=== PATIENT | female | born 1980 | race Caucasian/White ===

== ENCOUNTER 2017-02-16 18:06 | Emergency (ER) | payer OTHER ==
[2017-02-16 18:22] VITALS: BP 160/95; PULSE 108; RESP 20; TEMP 98.8; O2SAT 98
--- NOTE | 2017-02-16 19:33 | UCPHY ---
H & P Time Seen by Provider: 02/16/17 19:09 Patient Type: Established HPI/ROS: This patient has 3 week history of URI symptoms that are worsening. She explains that she had nasal congestion for the 1st week or so over the past 2 weeks has had increasing sinus pain to the maxillary sinus the left more than other areas that worsens when she bends forward. She also describes a cough with mild wheeze that started over the past 10 days. ROS: No high fevers or chills. No other constitutional symptoms HEENT: No significant sore throat. She reports intermittent epistaxis that is usually brief with her sinus symptoms. She has no other HEENT complaints this time. Pulmonary: No pleuritic pain or shortness of breath. GI: No vomiting neuro: No confusion. 7 point ROS is otherwise negative. Past Medical/Surgical History: Otherwise healthy Smoking Status: Former smoker Physical Exam: Physical Exam Vital signs are normal. General: No acute distress HEENT: Nose: Swollen nasal turbinates and mucosa on the left side with purulent appearing discharge in sinus tenderness to percussion left maxillary sinus. Oropharynx is clear Ears: External canals and tympanic membranes are clear with no erythema or abnormal findings bilaterally. Oropharynx: No erythema or exudates. No dysphonia. No drooling or stridor. Neck: Supple Eyes: Pupils equal and react to light. Extraocular motions are intact. Lungs: Faint expiratory wheeze only with cough. No rales or rhonchi. Cardiac: Regular rate and rhythm with no murmur gallop or rub Skin: No rash or pallor. Neuro: Alert with no focal deficits noted. Sinusitis with cough. Bronchitis. Doubt pneumonia. Constitutional: Initial Vital Signs Temperature (C) 37.1 C 02/16/17 18:18 Heart Rate 108 H 02/16/17 18:18 Respiratory Rate 20 02/16/17 18:18 Blood Pressure 160/95 H 02/16/17 18:18 O2 Sat (%) 98 02/16/17 18:18 O2 Delivery Mode Room Air Allergies/Adverse Reactions: cephalexin monohydrate [From Keflex] Allergy (Verified 11/20/16 17:21) Home Medications: Medication Instructions Recorded Albuterol Hfa Anes Only [Proair 2 puffs IH Q4 PRN #1 mdi 02/16/17 Hfa Icu (*)] Azithromycin [Zithromax] 250 mg PO DAILY #6 tab 02/16/17 Fluticasone Nasal [Flonase Nasal 2 sprays NASAL DAILY #1 mdi 02/16/17 Miller (RX)] Fluticasone Nasal [Flonase Nasal 2 sprays NASAL DAILY #1 mdi 02/16/17 Miller (RX)] MDM/Departure - [facility] ED Course/Re-evaluation: I counseled the patient regarding sinusitis. No clinical evidence to suggest STEERER infection or other complicating factors. - Depart Disposition: Home, Routine, Self-Care Clinical Impression: Cough Maxillary sinusitis, acute Qualifiers: Recurrence: not specified as recurrent Qualified Code(s): J01.00 - Acute maxillary sinusitis, unspecified Condition: Good Instructions: Sinusitis (ED) Additional Instructions: Diagnosis: Maxillary sinusitis 2. Cough Plan: Humidifier Guaifenesin Flonase steroid nasal spray Zithromax antibiotic Albuterol if needed for cough, wheeze or shortness of breath. Ibuprofen for swelling and pain as needed Return for any significant worsening despite the treatment plan. Prescriptions: Albuterol Hfa Anes Only [Proair Hfa Icu (*)] 2 puffs IH Q4 PRN #1 mdi PRN Reason: Wheezing Azithromycin [Zithromax] 250 mg PO DAILY #6 tab Fluticasone Nasal [Flonase Nasal Miller (RX)] 2 sprays NASAL DAILY #1 mdi Fluticasone Nasal [Flonase Nasal Miller (RX)] 2 sprays NASAL DAILY #1 mdi Referrals: NONE *PRIMARY CARE P,. [Primary Care Provider] - As per Instructions - PQRS PQRS Measurement: NA
== END 2017-02-16 19:45 | disposition home or self-care (01) ==
LOC: CED 18:06
DX: J01.00 Acute maxillary sinusitis, unspecified (principal)
CPT/HCPCS: G0463-PO

== ENCOUNTER 2017-03-23 16:08 | Emergency (ER) | payer OTHER ==
--- NOTE | 2017-03-23 17:42 | EDPHY ---
H & P Stated Complaint: h/a since 03/22-concerned for spinal h/a--had spinal anesthesia 03/21 Time Seen by Provider: 03/23/17 16:26 HPI/ROS: CHIEF COMPLAINT: Positional headache HISTORY OF PRESENT ILLNESS: The patient presents to the ED with a 3 day history of a severe positional headache. The patient is status post right knee arthroplasty,/labral reconstruction earlier this week. The patient did have a spinal epidural anesthesia in addition to general anesthesia. The patient reports a headache which is 9/10 when upright and 3/10 when recumbent. The patient does have a history of chronic migraines. She reports she has difficult to control migraines at baseline. The patient states this is not typical of her migraine headaches. The patient denies fever, she denies focal numbness, weakness or additional complaints. REVIEW OF SYSTEMS: A comprehensive 10 point review of systems is otherwise negative aside from elements mentioned in the history of present illness. Source: Patient Exam Limitations: No limitations - Personal History LMP (Females 10-55): 15-21 Days Ago Current Tetanus/Diphtheria Vaccine: Unsure Current Tetanus Diphtheria and Acellular Pertussis (TDAP): Unsure Tetanus Vaccine Date: 11/2014 - Medical/Surgical History Hx Asthma: No Hx Chronic Respiratory Disease: No Hx Diabetes: No Hx Cardiac Disease: No Hx Renal Disease: No Hx Cirrhosis: No Hx Alcoholism: No Hx HIV/AIDS: No Hx Splenectomy or Spleen Trauma: No Other PMH: denies - Social History Smoking Status: Former smoker - Physical Exam Exam: General Appearance: Alert, no distress Eyes: Pupils equal and round no pallor or injection ENT, Mouth: Mucous membranes moist Respiratory: There are no retractions, lungs are clear to auscultation Cardiovascular: Regular rate and rhythm Gastrointestinal: Abdomen is soft and nontender, no masses, bowel sounds normal Neurological: A&O, normal motor function, normal sensory exam, normal cranial nerves Skin: Warm and dry, no rashes Musculoskeletal: Neck is supple nontender Extremities: symmetrical, full range of motion Constitutional: Initial Vital Signs Temperature (C) 36.8 C 03/23/17 16:19 Heart Rate 99 03/23/17 16:19 Respiratory Rate 16 03/23/17 16:19 Blood Pressure 124/100 H 03/23/17 16:19 O2 Sat (%) 95 03/23/17 16:19 O2 Delivery Mode Nasal Cannula O2 (L/minute) 2 Allergies/Adverse Reactions: cephalexin monohydrate [From Keflex] Allergy (Verified 11/20/16 17:21) Home Medications: Medication Instructions Recorded Dilaudid 03/23/17 Valium 03/23/17 Medical Decision Making - Diagnostics Imaging Results: Imaging Impressions Lumbar Puncture 03/23/17 16:47 Impression: Blood patch performed at L1-L2. ED Course/Re-evaluation: The patient presents to the emergency department with a positional headache following an epidural anesthesia. I did consult with Dr. Rica Skelton who is on-call for Interventional Radiology who will perform a blood patch on the patient. Patient returns from her blood patch with marked improvement of her symptoms. The patient was kept supine for 1 hour. She will be discharged home with her . Differential Diagnosis: Differential diagnosis considered includes post lumbar puncture headache, meningitis, migraine headache Departure - Departure Disposition: Home, Routine, Self-Care Clinical Impression: Spinal puncture headache Condition: Good Instructions: Lumbar Puncture (ED) Additional Instructions: 1. Please return to the ED for markedly worsening symptoms, fever, vomiting or other concerns.
[2017-03-23] MEDS ORDERED: IOPAMIDOL (ISOVUE-M 300) 15 ML VIAL IV ONE (17:54)
[2017-03-23 18:08] VITALS: RESP 20
[2017-03-23 18:58] VITALS: BP 126/91; PULSE 91; TEMP 98.4; O2SAT 95
== END 2017-03-23 19:09 | disposition home or self-care (01) ==
DX: G97.1 Other reaction to spinal and lumbar puncture (principal); Z87.891 Personal history of nicotine dependence
CPT/HCPCS: Q9967

== ENCOUNTER 2017-03-29 15:55 | Emergency (ER) | payer OTHER ==
[2017-03-29 16:05] VITALS: TEMP 98.4
--- NOTE | 2017-03-29 16:13 | EDPHY ---
H & P Stated Complaint: Still has swelling R foot since hip surg ;sent for eval Time Seen by Provider: 03/29/17 16:13 - Personal History LMP (Females 10-55): 1-7 Days Ago Current Tetanus Diphtheria and Acellular Pertussis (TDAP): Yes Tetanus Vaccine Date: 11/2014 - Medical/Surgical History Hx Asthma: No Hx Chronic Respiratory Disease: No Hx Diabetes: No Hx Cardiac Disease: No Hx Renal Disease: No Hx Cirrhosis: No Hx Alcoholism: No Hx HIV/AIDS: No Hx Splenectomy or Spleen Trauma: No Other PMH: tachycardia - Social History Smoking Status: Former smoker Constitutional: Initial Vital Signs Temperature (C) 36.9 C 03/29/17 16:00 Heart Rate 118 H 03/29/17 16:00 Respiratory Rate 18 03/29/17 16:00 Blood Pressure 134/97 H 03/29/17 16:00 O2 Sat (%) 100 03/29/17 16:00 O2 Delivery Mode Room Air Allergies/Adverse Reactions: cephalexin monohydrate [From Keflex] Allergy (Intermediate, Verified 03/29/17 16 :05) "gives me colitis" Home Medications: Medication Instructions Recorded Sulfamethox/Tmp 800/160 mg 1 tab PO 03/29/17 [Bactrim Ds] Medical Decision Making - Diagnostics Imaging Results: Imaging Impressions Extremity Venous Study 03/29/17 16:13 Impression: No deep venous thrombosis right leg. Findings and recommendations discussed with Emergency Department physician, Han Rose MD at 16:52 hour, 03/29/2017. Final report concurs with initial preliminary interpretation. ED Course/Re-evaluation: CHIEF COMPLAINT: Right foot and calf swelling. HISTORY OF PRESENT ILLNESS: The patient is a 36-year-old female status post right hip labrum tear who presents with right foot and calf swelling that began this morning. She has been using her compression sock. She denies shortness of breath, chest pain, weakness, numbness, paresthesias, or other complaints. REVIEW OF SYSTEMS: A 10 point review of systems was performed and is negative with the exception of the elements mentioned in the history of present illness. PHYSICAL EXAM: HR, BP, O2 Sat, RR. Temp noted General Appearance: Alert, well hydrated, appropriate, and non-toxic appearing. Head: Atraumatic without scalp tenderness or obvious injury Eyes: Pupils equal, round, reactive to light and accommodation, EOMI, no trauma , no injection. Ears: Clear bilaterally, no perforation, normal landmarks Nose: Atraumatic, no rhinorrhea, clear. Throat: There is no erythema or exudates, no lesions, normal tonsils, mucus membranes moist. Neck: Supple, 2+ carotid upstroke, nontender, no lymphadenopathy. Respiratory: No retractions, no distress, no wheezes, and no accessory muscle use. Lungs are clear to auscultation bilaterally. Cardiovascular: Regular rate and rhythm, no murmurs, rubs, or gallops. Bilateral carotid, radial, dorsalis pedis, and posterior tibial pulses intact. Good capillary refill all extremities. Gastrointestinal: Abdomen is soft, nontender, non-distended, no masses, no rebound, no guarding, no peritoneal signs. Musculoskeletal: Normal active ROM of all extremities, atraumatic. Neurological: Alert, appropriate, and interactive. The patient has normal DTRs and non-focal cranial nerves, motor, sensory, and cerebellar exam. Skin: No rashes, good turgor, no nodules on palpation. Past medical history: Denies. Past surgical history: Hip surgery. Family history: N/A. Social history: Here alone. DIAGNOSTICS/PROCEDURES/CRITICAL CARE TIME: Study: Ultrasound of the: Right leg. Indication: Swelling. Results: See Image Results section for official report. The study was read by the radiologist, Dr. Molina. I viewed the images myself on the PACS system. DIFFERENTIAL DIAGNOSIS: The differential diagnosis for the patient's leg swelling included but was not limited to hypoalbuminemia, congestive heart failure, cor pulmonale, venous stasis, trauma, and DVT. MEDICAL DECISION MAKIN-year-old female status post right hip surgery presents with right calf and foot swelling. She also has mild tenderness over the dorsum of her foot. I am suspicious for blood clot. Right leg ultrasound ordered. Ultrasound results conveyed to me negative by Dr. Molina, radiology. I discussed these results with her. She understands to follow up with her PCP for reevaluation. She is comfortable with this plan. Departure - Departure Disposition: Home, Routine, Self-Care Clinical Impression: Foot swelling Condition: Good Instructions: Leg Edema (ED) Additional Instructions: Follow up with your primary care provider for reevaluation. Return for any serious worsening of condition. Referrals: BELKYS LEE [Other] - As per Instructions Report Scribed for: Han Rose Report Scribed by: David Schultz Date of Report: 03/29/17 Time of Report: 16:18
[2017-03-29 17:09] VITALS: BP 118/76; PULSE 80; RESP 14; O2SAT 94
== END 2017-03-29 17:08 | disposition home or self-care (01) ==
DX: M79.89 Other specified soft tissue disorders (principal); Z87.891 Personal history of nicotine dependence

== ENCOUNTER 2017-06-01 18:31 | Emergency (ER) | payer OTHER ==
[2017-06-01 18:43] VITALS: BP 133/89; PULSE 94; RESP 16; TEMP 98.2; O2SAT 98
--- NOTE | 2017-06-01 18:44 | EDPHY ---
H & P Time Seen by Provider: 06/01/17 18:37 HPI/ROS: CHIEF COMPLAINT: Dysuria HISTORY OF PRESENT ILLNESS: Patient is a 37-year-old female with a history of frequent urinary tract infections comes to the emergency department complaining of dysuria, frequency and mild flank pain. The pain is bilateral. No hesitancy. No bleeding. No vaginal symptoms. She has not been sexually active in 8 months. No nausea vomiting or diarrhea. No fever. She states that this feels similar to previous urinary tract infections. REVIEW OF SYSTEMS: Constitutional: denies: chills, fever, recent illness, recent injury EENTM: denies: blurred vision, double vision, nose congestion Respiratory: denies: cough, shortness of breath Cardiac: denies: chest pain, irregular heart rate, lightheadedness, palpitations Gastrointestinal/Abdominal: denies: abdominal pain, diarrhea, nausea, vomiting, blood streaked stools Genitourinary: See HPI Musculoskeletal: denies: joint pain, muscle pain Skin: denies: lesions, rash, jaundice, bruising Neurological: denies: headache, numbness, paresthesia, tingling, dizziness, weakness Hematologic/Lymphatic: denies: blood clots, easy bleeding, easy bruising Immunologic/allergic: denies: HIV/AIDS, transplant EXAM: GENERAL: Well-appearing, well-nourished and in no acute distress. HEAD: Atraumatic, normocephalic. EYES: Pupils equal round and reactive to light, extraocular movements intact, sclera anicteric, conjunctiva are normal. ENT: TMs normal, nares patent, oropharynx clear without exudates. Moist mucous membranes. NECK: Normal range of motion, supple without lymphadenopathy or JVD. LUNGS: Breath sounds clear to auscultation bilaterally and equal. No wheezes rales or rhonchi. HEART: Regular rate and rhythm without murmurs, rubs or gallops. ABDOMEN: Slight suprapubic tenderness, Soft, normoactive bowel sounds. No guarding, no rebound. No masses appreciated. BACK: Mild CVA tenderness, no spinal tenderness, step-offs or deformities EXTREMITIES: Normal range of motion, no pitting or edema. No clubbing or cyanosis. NEUROLOGICAL: Cranial nerves II through XII grossly intact. Normal speech, normal gait. 5/5 strength, normal movement in all extremities, normal sensation PSYCH: Normal mood, normal affect. SKIN: Warm, dry, normal turgor, no visible rashes or lesions. Source: Patient Exam Limitations: No limitations - Personal History Tetanus Vaccine Date: 11/2014 - Medical/Surgical History Hx Asthma: No Hx Chronic Respiratory Disease: No Hx Diabetes: No Hx Cardiac Disease: No Hx Renal Disease: No Hx Cirrhosis: No Hx Alcoholism: No Hx HIV/AIDS: No Hx Splenectomy or Spleen Trauma: No Other PMH: tachycardia - Family History Significant Family History: No pertinent family hx - Social History Smoking Status: Former smoker Alcohol Use: Sober Drug Use: None Constitutional: Initial Vital Signs Temperature (C) 36.8 C 06/01/17 18:33 Heart Rate 94 06/01/17 18:33 Respiratory Rate 16 06/01/17 18:33 Blood Pressure 133/89 H 06/01/17 18:33 O2 Sat (%) 98 06/01/17 18:33 O2 Delivery Mode Room Air Allergies/Adverse Reactions: cephalexin monohydrate [From Keflex] Allergy (Intermediate, Verified 06/01/17 18 :43) "gives me colitis" Home Medications: Medication Instructions Recorded Effexor 06/01/17 GABAPENTIN 06/01/17 Nitrofurantoin Monohyd/M-Cryst 100 mg PO BID #20 cap 06/01/17 [Nitrofurantoin Harris-Macrocrystal] Medical Decision Making ED Course/Re-evaluation: Patient's urinalysis is unremarkable however her symptoms are characteristic To urinary tract infections and to her very similar to previous infections. She is requesting antibiotics. She is allergic to Keflex. I will start her on Macrobid. We will send her urine for cultures. She is happy with this plan and declines any further workup or testing. Differential Diagnosis: Partial list of the Differential diagnosis considered include but were not limited to; urinary tract infection, kidney stone, yeast infection and although unlikely based on the history and physical exam, I also considered , aneurysm, diverticulitis, appendicitis. I discussed these differential diagnoses and the plan with the patient as well as the usual and expected course. The patient understands that the diagnosis is provisional and that in medicine we are not always correct and that further workup is often warranted. Usual and customary warnings were given. All of the patient's questions were answered. The patient was instructed to return to the emergency department should the symptoms at all worsen or return, otherwise to followup with the physician as we discussed. - Data Points Laboratory Results: 06/01/17 18:40 Urine Color YELLOW Urine Appearance CLEAR Urine pH 5.5 (5.0-7.5) Ur Specific [place] >= 1.030 (1.002-1.030) Urine Protein NEGATIVE (NEGATIVE) Urine Ketones TRACE H (NEGATIVE) Urine Blood NEGATIVE (NEGATIVE) Urine Nitrate NEGATIVE (NEGATIVE) Urine Bilirubin NEGATIVE (NEGATIVE) Urine Urobilinogen 0.2 EU EU (0.2-1.0) Ur Leukocyte Esterase NEGATIVE (NEGATIVE) Urine RBC 0-1 /hpf /hpf (0-3) Urine WBC 1-3 /hpf /hpf (0-3) Ur Epithelial Cells 2+ /lpf H /lpf (NONE-1+) Urine Bacteria 1+ /hpf H /hpf (NONE SEEN) Hyaline Casts 0-1 /lpf /lpf (0-1) Urine Mucus 2+ /lpf H /lpf (NONE-1+) Urine Glucose NEGATIVE (NEGATIVE) Departure - Departure Disposition: Home, Routine, Self-Care Clinical Impression: Urinary tract infection Qualifiers: Urinary tract infection type: acute cystitis Hematuria presence: without hematuria Qualified Code(s): N30.00 - Acute cystitis without hematuria Condition: Fair Instructions: Urinary Tract Infection in Women (ED) Referrals: NONE *PRIMARY CARE P,. [Primary Care Provider] - As per Instructions Shavon Rodriguez MD [Medical Doctor] - As per Instructions Prescriptions: Nitrofurantoin Monohyd/M-Cryst [Nitrofurantoin Harris-Macrocrystal] 100 mg PO BID #20 cap
[2017-06-01 18:55] LABS: COLOR YELLOW; LEUKOCYTE ESTERASE,URINE NEGATIVE (NEGATIVE); NITRITE,URINE NEGATIVE (NEGATIVE); PH,URINE 5.5 (5.0-7.5)
[2017-06-01 19:07] LABS: BACTERIA 1+ /hpf (NONE SEEN); HYALINE CASTS 0-1 /lpf (0-1); MUCUS 2+ /lpf (NONE-1+); RBC,URINE 0-1 /hpf (0-3)
== END 2017-06-01 19:26 | disposition home or self-care (01) ==
LOC: CED 18:31
DX: N30.00 Acute cystitis without hematuria (principal); B96.89 Other specified bacterial agents as the cause of diseases classified elsewhere; Z87.891 Personal history of nicotine dependence
CPT/HCPCS: 81003-PO; 81015-PO

== ENCOUNTER 2017-06-12 14:16 | Emergency (ER) | payer OTHER ==
[2017-06-12 14:21] VITALS: BP 124/94; PULSE 108; RESP 16; TEMP 97.7; O2SAT 96
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
[2017-06-12] MEDS ORDERED: OXYCODONE/APAP 5/325 TAB PO ONE (14:33)
== END 2017-06-12 16:14 | disposition home or self-care (01) ==
DX: S80.01XA Contusion of right knee, initial encounter (principal); Z87.891 Personal history of nicotine dependence; W01.0XXA Fall on same level from slipping, tripping and stumbling without subsequent striking against object, initial encounter

== ENCOUNTER 2017-07-19 17:33 | Emergency (ER) | payer OTHER ==
[2017-07-19 17:45] VITALS: O2SAT 97
[2017-07-19] MEDS ORDERED: PROMETHAZINE 25 MG PREPACK #4 BTL TAKEHOME ONE (18:35)
--- NOTE | 2017-07-19 18:39 | EDPHY ---
H & P Stated Complaint: HIT HEAD LAST NIGHT, ONGOING NAUSEAS AND EVANS Time Seen by Provider: 07/19/17 18:29 HPI/ROS: CHIEF COMPLAINT: Concussion HISTORY OF PRESENT ILLNESS: The patient is a 37-year-old female who comes to the emergency department concerned that she had a concussion. She states that yesterday she was sitting on the couch and bent over and hit her head on the counter. She did not lose consciousness. She has had a headache ever since then. She did vomit last night. She has not vomited today. She has mild photophobia. No neck or back pain. No weakness or numbness. She states that her kept her awake all night last night checking on her. REVIEW OF SYSTEMS: Constitutional: denies: chills, fever, recent illness, recent injury EENTM: denies: blurred vision, double vision, nose congestion Respiratory: denies: cough, shortness of breath Cardiac: denies: chest pain, irregular heart rate, lightheadedness, palpitations Gastrointestinal/Abdominal: denies: abdominal pain, diarrhea, nausea, vomiting, blood streaked stools Genitourinary: denies: dysuria, frequency, hematuria, pain Musculoskeletal: denies: joint pain, muscle pain Skin: denies: lesions, rash, jaundice, bruising Neurological: See HPI Hematologic/Lymphatic: denies: blood clots, easy bleeding, easy bruising Immunologic/allergic: denies: HIV/AIDS, transplant EXAM: GENERAL: Well-appearing, well-nourished and in no acute distress. HEAD: Atraumatic, normocephalic. EYES: No nystagmus, Pupils equal round and reactive to light, extraocular movements intact, sclera anicteric, conjunctiva are normal. ENT: TMs normal, nares patent, oropharynx clear without exudates. Moist mucous membranes. NECK: Normal range of motion, supple without lymphadenopathy or JVD. LUNGS: Breath sounds clear to auscultation bilaterally and equal. No wheezes rales or rhonchi. HEART: Regular rate and rhythm without murmurs, rubs or gallops. ABDOMEN: Soft, nontender, normoactive bowel sounds. No guarding, no rebound. No masses appreciated. BACK: No CVA tenderness, no spinal tenderness, step-offs or deformities EXTREMITIES: Normal range of motion, no pitting or edema. No clubbing or cyanosis. NEUROLOGICAL: Cranial nerves II through XII grossly intact. Normal speech, normal gait. 5/5 strength, normal movement in all extremities, normal sensation PSYCH: Normal mood, normal affect. SKIN: Warm, dry, normal turgor, no visible rashes or lesions. Source: Patient Exam Limitations: No limitations - Personal History LMP (Females 10-55): 8-14 Days Ago Current Tetanus Diphtheria and Acellular Pertussis (TDAP): Yes Tetanus Vaccine Date: 11/2014 - Medical/Surgical History Hx Asthma: No Hx Chronic Respiratory Disease: No Hx Diabetes: No Hx Cardiac Disease: No Hx Renal Disease: No Hx Cirrhosis: No Hx Alcoholism: No Hx HIV/AIDS: No Hx Splenectomy or Spleen Trauma: No Other PMH: tachycardia,MRSA ON SKIN 2014, PYLONEPHRITIS, HIP SURGERY - Family History Significant Family History: No pertinent family hx - Social History Smoking Status: Former smoker Alcohol Use: Sober Drug Use: None Constitutional: Initial Vital Signs Temperature (C) 36.5 C 07/19/17 17:42 Heart Rate 100 07/19/17 17:42 Respiratory Rate 16 07/19/17 17:42 Blood Pressure 110/82 H 07/19/17 17:42 O2 Sat (%) 97 07/19/17 17:42 O2 Delivery Mode Room Air Allergies/Adverse Reactions: cephalexin monohydrate [From Keflex] Allergy (Intermediate, Verified 06/01/17 18 :43) "gives me colitis" Home Medications: Medication Instructions Recorded Effexor 06/01/17 GABAPENTIN 06/01/17 Diphenoxylate HCl/Atropine 07/19/17 Omeprazole 07/19/17 Promethazine HCl [Phenergan 25mg 25 mg PO TID PRN #10 tab 07/19/17 (RX)] Medical Decision Making ED Course/Re-evaluation: The patient has symptoms consistent with a concussion. I will treat her with Phenergan for her headache and nausea. We discussed the risks and benefits of CT scanning. At This point it has been almost 24 hours since her injury and I think the yield is low. The patient agrees. We discussed indications for returning to the emergency department. I advised her to rest as much as possible which she states is difficult because she has 2-year-old. Differential Diagnosis: Partial list of the Differential diagnosis considered include but were not limited to; concussion, migraine, gastritis and although unlikely based on the history and physical exam, I also considered hemorrhage, fracture, neck injury. I discussed these differential diagnoses and the plan with the patient as well as the usual and expected course. The patient understands that the diagnosis is provisional and that in medicine we are not always correct and that further workup is often warranted. Usual and customary warnings were given. All of the patient's questions were answered. The patient was instructed to return to the emergency department should the symptoms at all worsen or return, otherwise to followup with the physician as we discussed. - Data Points Medications Given: Discontinued Medications Promethazine HCl (Phenergan 25 Mg Prepack #4) 1 btl TAKEHOME EDNOW ONE Stop: 07/19/17 18:36 Last Admin: 07/19/17 18:58 Dose: 1 btl Departure - Departure Disposition: Home, Routine, Self-Care Clinical Impression: Concussion Qualifiers: Encounter type: initial encounter Loss of consciousness presence/duration: without LOC Qualified Code(s): S06.0X0A - Concussion without loss of consciousness, initial encounter Condition: Fair Instructions: Promethazine (By mouth), Concussion (ED) Referrals: LETTY IRAHETA [Other] - As per Instructions Prescriptions: Promethazine HCl [Phenergan 25mg (RX)] 25 mg PO TID PRN #10 tab PRN Reason: Nausea & Vomiting
[2017-07-19 18:58] VITALS: BP 119/86; PULSE 92; RESP 18; TEMP 98.4
== END 2017-07-19 18:59 | disposition home or self-care (01) ==
DX: S06.0X0A Concussion without loss of consciousness, initial encounter (principal); Z87.891 Personal history of nicotine dependence; W22.8XXA Striking against or struck by other objects, initial encounter; Y99.8 Other external cause status

== ENCOUNTER 2017-07-27 14:52 | Emergency (ER) | payer OTHER ==
[2017-07-27 15:00] VITALS: RESP 18
--- NOTE | 2017-07-27 15:18 | EDPHY ---
H & P Time Seen by Provider: 07/27/17 15:05 HPI/ROS: CHIEF COMPLAINT: Laceration right hand HISTORY OF PRESENT ILLNESS: 37-year-old female arrives via private vehicle complaining acute laceration right thenar eminence after she was caring a beer bottle, sustained a mechanical fall and fell onto the beer bottle breaking the glass. She is complaining of laceration. No paresthesia. No foreign body sensation. Tetanus up-to-date. No other injury. Occurred shortly prior to arrival. PHYSICAL EXAM (Prior to examination, patient consented to physical exam, hands were washed and my usual and customary physical exam procedures followed) 1) GENERAL: Well-developed, well-nourished, alert and oriented. Appears anxious 2) HEAD: Normocephalic 3) HEENT: sclera anicteric 4) LUNGS: Breathing comfortably. 5) SKIN: right thenar eminence 2.5 cm flap laceration with viable flap tissue. 6) MUSCULOSKELETAL: flexor extensor abduction adduction , function intact 7) NEUROLOGIC: Full sensation distally Smoking Status: Former smoker Constitutional: Initial Vital Signs Temperature (C) 37 C 07/27/17 14:58 Heart Rate 92 07/27/17 14:58 Respiratory Rate 18 07/27/17 14:58 Blood Pressure 132/98 H 07/27/17 14:58 O2 Sat (%) 98 07/27/17 14:58 O2 Delivery Mode Room Air Allergies/Adverse Reactions: cephalexin monohydrate [From Keflex] Allergy (Intermediate, Verified 06/01/17 18 :43) "gives me colitis" Home Medications: Medication Instructions Recorded Effexor 06/01/17 GABAPENTIN 06/01/17 Diphenoxylate HCl/Atropine 07/19/17 Omeprazole 07/19/17 Ondansetron [Ondansetron Odt] 4 mg PO 07/27/17 MDM/Departure - MDM Imaging Results: Imaging Impressions Hand X-Ray 07/27/17 15:24 Impression: Negative right hand radiographs. Images reviewed myself Procedures: Procedure: Laceration repair. I explained the indications, risks and benefits for both laceration repair and anesthetic administration. Verbal consent was obtained from the patient . The laceration on the right thenar eminence was anesthetized using 0.5% bupivicaine with epinephrine . After anesthetic administered the patient was observed for a period of time and had no apparent adverse effects. The wound was cleaned, prepped, draped in normal sterile fashion and explored to its base. No foreign body seen, no foreign bodies palpated. There were no deep structures involved. No tendon injury was identified. The wound was repaired with 7 simple interrupted 5 O Prolene sutures. The wound repair was simple. The procedure was performed by myself. Patient has been informed that scarring will occur, although efforts have been made to minimize this. Procedure: Splint A Velcro volar splint was applied by ER driver service technician order to decrease stress laceration site. After application of the splint I returned and re-examined the patient. The splint was adequately immobilizing the joint and distal to the splint the patient's circulation and sensation were intact. Patient shows no signs of compartment syndrome. Was given orthopedic precautions. ED Course/Re-evaluation: 3:17 p.m.: Will obtain x-rays to evaluate for glass radiopaque foreign body - Depart Disposition: Home, Routine, Self-Care Clinical Impression: Laceration of right hand Qualifiers: Encounter type: initial encounter Foreign body presence: without foreign body Qualified Code(s): S61.411A - Laceration without foreign body of right hand, initial encounter Condition: Good Instructions: Laceration (ED) Additional Instructions: Return to the ER if you develop redness, swelling, discharge, warmth to the wound, red streaks going up your arm , or any other symptoms that concern you. Referrals: Return, to the ER in 10 days for suture removal [Other] - As per Instructions
[2017-07-27 17:23] VITALS: BP 133/78; PULSE 81; TEMP 97.7; O2SAT 96
== END 2017-07-27 17:20 | disposition home or self-care (01) ==
PROC: 0HQFXZZ Repair Right Hand Skin, External Approach (ICD-10-PCS; principal; 2017-07-27)
DX: S61.411A Laceration without foreign body of right hand, initial encounter (principal); Z87.891 Personal history of nicotine dependence; W01.110A Fall on same level from slipping, tripping and stumbling with subsequent striking against sharp glass, initial encounter; Y99.8 Other external cause status
CPT/HCPCS: L3807

== ENCOUNTER → 2018-01-24 | Outpatient (CLI) | payer OTHER | LOC: SBRMNEURO 21:00 | PROVIDERS: ATTEND Internal Medicine Sleep Medicine | DX: G47.33 Obstructive sleep apnea (adult) (pediatric) (principal) ==

== ENCOUNTER 2018-03-14 11:55 | Emergency (ER) | payer OTHER ==
[2018-03-14 12:06] VITALS: BP 127/80
[2018-03-14] MEDS ORDERED: IBUPROFEN 600 MG TAB PO ONE (12:34)
--- NOTE | 2018-03-14 13:00 | EDPHY ---
H & P Time Seen by Provider: 03/14/18 12:39 HPI/ROS: HPI Head injury. 37-year-old female by private vehicle with her [id number]. This patient reports that she was playing with her baby boy who is 3 years old. She was hit by the back of his head on her left forehead when he was in her lap. No loss of consciousness. She has not had any confusion or lethargy. No vomiting. She reports that she has some ringing sensation in the right ear and had some tingling on the left side of her tongue. She feels better now. No changes in vision. She denies any significant headache. She reports that she has some neck pain which she describes as posterior lateral. She is in a cervical collar that was placed by triage. No other history of traumatic event or other injury. She states though that she was hit in the same place by her son's head in a similar manner 3 weeks ago was seen in our emergency department for that as well. ROS: Constitutional: No fever, no chills. No weakness. Eyes: No discharge. No changes in vision. ENT: No sore throat. No nasal congestion or rhinorrhea. As above. Respiratory: No cough. No shortness of breath. Cardiac: No chest pain, no palpitations. Gastrointestinal: No abdominal pain, no vomiting, no diarrhea. Genitourinary: No hematuria. No dysuria or increased frequency with urination. Musculoskeletal: No back pain. No neck pain. No myalgias or arthralgias. Skin: No rashes. Neurological: No headache. No focal weakness or loss of sensation. As above. Past medical history: Pyelonephritis, hip surgery, tachycardia, MRSA on skin. Psychiatric. Social history: Here with mother in law. Nonsmoker. No alcohol. Physical Exam: General Appearance: Alert, no distress. This patient is responding to questions appropriately and in full sentences. This patient appears well- hydrated and well-nourished. Head: Normocephalic atraumatic except for an area left upper forehead which is tender on palpation but I do not appreciate any bony step-off or deformity on palpation. There is no significant hematoma, no associated ecchymosis or other soft tissue/skin abnormality. Face: Facial bones are stable on palpation. Eyes: Pupils equal and round and reactive to light at 3-2 mm, no pallor or injection. No lid erythema or edema. ENT, Mouth: Mucous membranes moist. Dentition is intact. No malocclusion of the jaw. No tongue lacerations or abrasions. Pharynx is clear. The bilateral nasal canals are clear. No septal hematoma. External auditory canals and tympanic membranes are clear bilaterally. She has sensation to light touch on both sides of her tongue. Respiratory: There are no retractions, lungs are clear to auscultation with good air movement bilaterally. Chest wall is stable to AP and lateral palpation. Cardiovascular: Regular rate and rhythm. No murmur. Neurological: Motor sensory function is intact. Cranial nerves are normal. Cerebellar function intact. Skin: Warm and dry, no rashes. No lacerations, abrasions or contusions. Musculoskeletal: Neck is supple and nontender. The trachea is midline. No midline cervical, thoracic, lumbar or sacral tenderness on palpation. Vague paraspinal tenderness which is mild on right side from C3 through C6. No flank tenderness on palpation. Extremities are symmetrical, full range of motion. All joints in the bilateral upper and bilateral lower extremities range without pain or impingement. No tenderness on palpation of the long bones in the bilateral upper and bilateral lower extremities. Psychiatric: No agitation. No depression. Database: EKG: Imaging: Procedures: Emergency department course: Vital signs reviewed and are normal. Patient was in a cervical collar. Cervical collar was clinically cleared by myself at 1:00 p.m.. No significant findings on her trauma exam. Her presentation and mechanism of injury are not consistent with a serious head injury. I feel she is safe for discharge. I feel acute neurologic disorder is also very unlikely. She has follow up with her primary care physician at 12:40 p.m. Tomorrow. She will keep this appointment. I discussed head injury precautions with her and her mother-in- law. Return to emergency department precautions reviewed. All of their questions were answered. The patient was discharged in good condition. Differential Diagnosis: The differential diagnosis on this patient includes but is not limited to minor head injury. Concussion syndrome, epidural hematoma, subdural hematoma, traumatic subarachnoid hemorrhage, hemotympanum, CVA, TIA, MS unlikely. This represents a partial list of diagnoses considered. These considerations are based on history, physical exam, past history, reassessment and diagnostic testing. Smoking Status: Former smoker Constitutional: Initial Vital Signs Temperature (C) 36.9 C 03/14/18 12:01 Heart Rate 74 03/14/18 12:01 Respiratory Rate 17 03/14/18 12:01 Blood Pressure 127/80 H 03/14/18 12:01 O2 Sat (%) 97 03/14/18 12:01 O2 Delivery Mode Room Air Allergies/Adverse Reactions: cephalexin monohydrate [From Keflex] Allergy (Intermediate, Verified 03/14/18 11 :59) "gives me colitis" albuterol Allergy (Verified 03/14/18 11:59) azithromycin Allergy (Verified 03/14/18 11:59) Home Medications: Medication Instructions Recorded Diphenoxylate HCl/Atropine 07/19/17 Cymbalta 30 MG (*) 03/14/18 Klonopin 03/14/18 Lomotil Tab (*) 03/14/18 Medical Decision Making - Data Points Medications Given: Discontinued Medications Ibuprofen (Motrin) 600 mg PO EDNOW ONE Stop: 03/14/18 12:35 Last Admin: 03/14/18 12:35 Dose: 600 mg Departure - Departure Disposition: Home, Routine, Self-Care Clinical Impression: Head injury Condition: Good Instructions: Head Injury (ED) Additional Instructions: Read and follow provided instructions. Follow-up with your primary care physician as scheduled for re-evaluation tomorrow at 12:40 p.m. Take your medication as prescribed. Return to the emergency department for worsening symptoms, worsening headache, confusion, lethargy, nausea and vomiting or other serious concerns. Referrals: Lilly Rueda MD [Primary Care Provider] - As per Instructions
== END 2018-03-14 13:07 | disposition home or self-care (01) ==
DX: S09.90XA Unspecified injury of head, initial encounter (principal); Z87.891 Personal history of nicotine dependence; W51.XXXA Accidental striking against or bumped into by another person, initial encounter; Y99.8 Other external cause status; Y93.89 Activity, other specified

== ENCOUNTER 2018-12-28 14:40 | Emergency (ER) | payer SELFPAY ==
[2018-12-28 14:46] VITALS: BP 133/93
--- NOTE | 2018-12-28 15:29 | EDPHY ---
H & P Smoking Status: Former smoker Time Seen by Provider: 12/28/18 15:09 HPI/ROS: CHIEF COMPLAINT: Left foot pain x3 days HISTORY OF PRESENT ILLNESS: 38-year-old female arrives via private vehicle complaining of left foot pain for the past 3 days when she misstepped and felt a pop in her foot. She is complaining of pain to the 1st MTP in the base of 5th metatarsal. She is able to bear partial weight only. She has her crutches at home. No fall from height. No calcaneus pain. No proximal tibia or fibula pain. PHYSICAL EXAM (Prior to examination, patient consented to physical exam, hands were washed and my usual and customary physical exam procedures followed) 1) GENERAL: Well-developed, well-nourished, alert and oriented. Appears to be in no acute distress. 2) HEAD: Normocephalic 3) HEENT: Pupils equal, round, reactive to light bilaterally. 4) LUNGS: Breathing comfortably. 5) MUSCULOSKELETAL: Tender to palpation base of 5th metatarsal with no tenting of tissue. Tender to palpation 1st MTP with no tenting of tissue. proximal tibia and fibula nontender . negative Dickinson test, compartments soft 6) SKIN: Intact throughout. Soft compartments throughout. Proximal tibia and fibular nontender. Ankle nontender. 7) VASCULAR: DP,PT pulses and cap refill present and brisk DIFFERENTIAL DIAGNOSIS: in no particular order including but not limited to fracture, sprain, compartment syndrome Procedure: Splint A pb boot splint was applied by ER farm technician. After application of the splint I returned and re-examined the patient. The splint was adequately immobilizing the joint and distal to the splint the patient's circulation and sensation were intact. Patient shows no signs of compartment syndrome. Was given orthopedic precautions. (Richard Powell) Constitutional: Initial Vital Signs Temperature (C) 36.9 C 12/28/18 14:44 Heart Rate 94 12/28/18 14:44 Respiratory Rate 16 12/28/18 14:44 Blood Pressure 133/93 H 12/28/18 14:44 O2 Sat (%) 96 12/28/18 14:44 O2 Delivery Mode Room Air Allergies/Adverse Reactions: cephalexin monohydrate [From Keflex] Allergy (Intermediate, Verified 12/28/18 14 :42) "gives me colitis" albuterol Allergy (Verified 12/28/18 14:42) azithromycin Allergy (Verified 12/28/18 14:42) Home Medications: Medication Instructions Recorded Diphenoxylate HCl/Atropine 07/19/17 Klonopin 03/14/18 Hydrocodone/APAP 5/325 [[place] 1 tab PO Q6 PRN #3 tab 12/28/18 5/325 (RX)] Remeron 12/28/18 MDM/Departure - MDM Imaging Results: Impression: 1. Acute nondisplaced base of fifth metatarsal fracture. 2. Acute nondisplaced intra-articular fracture medial base proximal phalanx great toe. Dictated By: Kong Robertson MD (Shantel Nielsen) ED Course/Re-evaluation: Patient is neurovascular intact. She has her own crutches at home. She has been fitted for Ztory boot in the ER. Recommend follow up with Podiatry. Given my usual and customary orthopedic precautions and instructions. She feels comfortable being discharged. Care of patient under supervision of secondary supervising physician Dr Nielsen. (Richard Powell) The patient was evaluated and managed by the Physician Group Exercise Instructor. My co- signature indicates that I have reviewed this chart and I agree with the findings and plan of care as documented. I am the secondary supervising physician. (Shantel Nielsen) - Depart Disposition: Home, Routine, Self-Care Clinical Impression: Fracture of 5th metatarsal Qualifiers: Encounter type: initial encounter Fracture type: closed Fracture alignment: nondisplaced Laterality: left Qualified Code(s): S92.355A - Nondisplaced fracture of fifth metatarsal bone, left foot, initial encounter for closed fracture Toe fracture, left Qualifiers: Encounter type: initial encounter Toe: great toe Fracture type: closed Phalanx : proximal Fracture alignment: nondisplaced Qualified Code(s): S92.415A - Nondisplaced fracture of proximal phalanx of left great toe, initial encounter for closed fracture Condition: Good Instructions: Foot Fracture in Adults (ED) Additional Instructions: Return to the ER immediately if you experience discoloration, have worsening pain, numbness, tingling, or any other symptoms that concern you. If you received x-rays in the emergency department today, be advised, that ligamentous , tendon, muscular, and other non-bony injury cannot be fully ruled out. Try to keep your affected extremity elevated above the level of your chest, and keep cold packs on the affected area, for the next 48 hours. Prescriptions: Hydrocodone/APAP [[place] 325 (RX)] 1 tab PO Q6 PRN #3 tab PRN Reason: Pain, Severe Referrals: Mariza Wetzel DPM [Doctor of Podiatric Medicine] - 2-3 days, call for appt.
== END 2018-12-28 15:30 | disposition home or self-care (01) ==
DX: S92.355A Nondisplaced fracture of fifth metatarsal bone, left foot, initial encounter for closed fracture (principal); S92.415A Nondisplaced fracture of proximal phalanx of left great toe, initial encounter for closed fracture; X50.9XXA Other and unspecified overexertion or strenuous movements or postures, initial encounter; Y92.9 Unspecified place or not applicable; Y93.9 Activity, unspecified; Y99.9 Unspecified external cause status; Z87.891 Personal history of nicotine dependence
CPT/HCPCS: L4386